=== PATIENT | female | born 1935 | race African-American/Black ===

== ENCOUNTER 2021-07-03 20:18 | Inpatient (IN) | payer OTHER ==
[~2021-07-03] VITALS: Ht 160 cm; Wt 103.6 kg
--- NOTE | ~2021-07-03 | EMS ---
[place] [id number] EMS Patient Care Report Name: ELO GUILLEN Room #: 204-P ADM IN M.R.#: [id number] Admission: 07/04/21 Attend Phys: Adriana Wilcox MD Discharge: Date of : 39 Report #: [id number] THIS REPORT FOR: //name// Report Transmitted: 07/07/2021 14:54 EMS Care Summary [place], [place]/[facility] Incident [id number] @ 07/03/2021 19:24 Incident Location [address] [place] [address] Patient ELO GUILLEN Female, 85 Years 1935 Patient Address [address] [place] [address] Patient History Congestive Heart Failure (CHF),Diabetes, Patient Allergies No known allergies, Patient Medications Lasix, Chief Complaint EDEMA Disposition Transported No Lights/[place] Dispatch Reason Breathing Problem Transported To [facility] Narrative M30 RESPONDED TO A BREATHING PROBLEM. ON SCENE M30 FOUND AN 85 YR OLD FEMALE SITTING UP ON A CHAIR IN A ROOM WATCHNG THE TELE. PT WAS A&OX4, GCS OF 15. NO TRAUMA OR BLEEDING NOTED. PT WAS NOT IN ANY DISTRESS OR [place] [address] EMS Patient Care Report Name: ELO GUILLEN Room #: 204-P [facility] IN [facility]#: [id number] Admission: 07/04/21 Attend Phys: Adriana Wilcox MD Discharge: Date of : 39 Report #: [id number] THAT SHE WAS FEELING SOB EARLIER IN THE THAT, BUT THAT HAD GONE AWAY, AND NOW WAS FEELING SOB AGAIN. SUBSTANTIAL EDEMA IN HER OWER EXTREMITIES WAS NOTED, AND PT ADDED THAT SHE WAS ON A WATER PILL. PT SAID SHE WAS UPSET AND AXIOUS WHEN SHE FELT SOB, BUT WAS MORE CONCERNED ABOUT HER FLUID RETENTION AND NOT GOING TO THE BATHROOM AF OFTEN SHE IS SUED TO. PT'S LUNG SOUNS WERE CLEAR BILATERALY WITH REGULAR NON LABORED RESPIRATIONS. PT'S ROOM AIR SATURATIONS WERE 96%. PT WAS ASSISED TO STRETCHER BROUGHT INTO THE ROOM. PT WAS SECURED WITH SEATBELTS AND MOVED TO THE AMBULANCE. PT'S CONDITION REMAINED STABLE AND UNCHANGED DURING NON-EMERGENCY TRANSPORT TO [facility]. PT CARE WAS TRANSFERRED TO ER STAFF IN ROOM 07. PT WAS MOVED TO BED BY ER STAFF AND EMS CREW. PT WAS LEFT IN BED WITH RAILS UP AND IN THE LOCKED POSITION, AND UNDER RN CARE. Initial Vitals @19:53P: 57,CO: 11,SpO2: 96, @19:42BP: 139/69,CO: 14,SpO2: 97, @19:41P: 60,R: 16,BP: 145/67,Pain: 0/10,GCS: 15,SpO2: 98,Revised Trauma: 12, Assessments @19:30MENTAL:Event Oriented,Person Oriented,Place Oriented,Time Oriented,SKIN:HEENT:Head/Face: No Abnormalities,LUNG SOUNDS:General: No Abnormalities,Left Upper: No Abnormalities,Right Upper: No Abnormalities,Left Lower: No Abnormalities,Right Lower: No Abnormalities,ABDOMEN:General: No Abnormalities,Left Upper: No Abnormalities,Right Upper: No Abnormalities,Left Lower: No Abnormalities,Right Lower: No Abnormalities,PELVIS//GI:No Abnormalities,EXTREMITIES:Right Leg: Edema,Left Leg: Edema,Left Arm: No Abnormalities,Right Arm: No Abnormalities,PULSE:Radial: 2+ Normal,NEURO:No Abnormalities, Impression Edema Procedures @19:30 ALS Assessment Response: UnchangedSucceeded Timeline 19:22,Call Received 19:22,Dispatch Notified 19:24,Dispatched 19:25,En Route 19:28,On Scene 19:30,At Patient 19:30,ALS Assessment,Response: UnchangedSucceeded, 19:41,BP: 145/67 M,PULSE: 60,RR: 16 R,SPO2: 98 Ox,ETCO2: ,BG: ,PAIN: 0,GCS: 15, 19:42,BP: 139/69 M,PULSE: ,RR: R,SPO2: 97 Ox,ETCO2: ,BG: ,PAIN: ,GCS: , 19:53,BP: / M,PULSE: 57,RR: R,SPO2: 96 Ox,ETCO2: ,BG: ,PAIN: ,GCS: , [facility] [address] [place] [address] EMS Patient Care Report Name: ELO GUILLEN Room #: 204-P [facility] IN ..#: [id number] Admission: 07/04/21 Attend Phys: Adriana Wilcox MD Discharge: Date of : 39 Report #: [id number] 20:00,Depart Scene 20:13,At Destination 20:25,Call Closed Disclaimer [email or web address] Copyright 2020 [employer] This EMS Care Summary contains data elements from the applicable legal record (which may be displayed differently). It is designed to provide pertinent information for the following purposes: continuity of care, clinical quality, and state data reporting. The complete legal record is available to ED staff and administrators of the receiving hospital in [email or web address]'s Patient Tracker. All data is provided "as is."
[2021-07-03 20:26] VITALS: BP 137/55
[2021-07-03 22:57] LABS: CALCIUM 8.7 mg/dL (8.5-10.1); CREATININE 2.7 mg/dL (0.6-1.0); POTASSIUM 4.5 mmol/L (3.5-5.1)
[2021-07-03] MEDS ORDERED: NORVASC10 MG PO (23:06)
[2021-07-03] MEDS ORDERED: LEVO-T100 MCG PO (23:06)
[2021-07-03 23:07] LABS: ALBUMIN 3.9 g/dL (3.4-5.0); TOTAL BILIRUBIN 0.5 mg/dL (0.2-1.0); TOTAL PROTEIN 7.9 g/dL (6.4-8.2)
[2021-07-03] MEDS ORDERED: NEURONTIN100 MG PO ×3 (23:07→23:20)
[2021-07-03] MEDS ORDERED: COZAAR100 MG PO (23:07)
[2021-07-03] MEDS ORDERED: ACID REDUCER20 MG PO (23:08)
[2021-07-03] MEDS ORDERED: LATANOPROST 0.2.5 ML (23:09)
[2021-07-03] MEDS ORDERED: ULTRAM50 MG (23:10)
[2021-07-03] MEDS ORDERED: CARBIDOPA-LEVO1 EAC5 PO (23:11)
[2021-07-03] MEDS ORDERED: HYDROCODON-ACE1 EA11 PO (23:19)
[2021-07-03 23:50] LABS: ABSOLUTE NEUTROPHILS 3.5 thou/uL (1.4-8.2); BASOPHILS 0.6 % (0.0-2.0); EOSINOPHILS 3.4 % (0.0-3.0); HEMATOCRIT 36.9 % (37.0-47.0); MCH 30.8 pg (26.0-34.0); MCHC 32.5 g/dL (28.0-37.0); MCV 94.7 fL (80.0-100.0); MONOCYTES 10.9 % (1.0-8.0); PLATELET COUNT 252 thou/uL (150-400); POLYS 60.1 % (36.0-66.0); RBC 3.89 mil/uL (4.20-5.00); RDW 15.5 % (10.5-14.5); WBC 5.9 thou/uL (4.0-11.0)
[2021-07-04 01:23] LABS: URINE BILIRUBIN NEGATIVE (Negative); URINE BLOOD 3+ (Negative); URINE CLARITY CLOUDY; URINE COLOR YELLOW; URINE GLUCOSE-RANDOM* NEGATIVE (Negative); URINE KETONES NEGATIVE (Negative); URINE NITRITE-REFLEX NEGATIVE (Negative); URINE PROTEIN (DIPSTICK) NEGATIVE (Negative); URINE SPECIFIC GRAVITY <= 1.005 (1.005-1.035); URINE UROBILINOGEN 0.2 E.U./dl (0.2-1.0)
[2021-07-04 01:39] LABS: URINE LEUKOCYTES-REFLEX 3+ (Negative)
[2021-07-04 01:48] LABS: BACTERIA-REFLEX >30 Many /HPF (None Seen); CASTS None Seen /LPF (None Seen); CRYSTALS None Seen /LPF (None Seen); MUCUS 0-3 Light strn/LPF (None Seen); SQUAMOUS 4-10 Moderate /LPF (0-3); URINE RBC >20 Many /HPF (NONE SEEN); URINE WBC-REFLEX >25 Many /HPF (0-5); WBC CLUMPS Packed (None Seen)
[2021-07-04 17:26] VITALS: BP 151/56
--- NOTE | 2021-07-04 18:01 | NUR ---
Received pt to room 204 from ER approx. 1645. Pt on RA, SA on the monitor. Pt is A&O x3. Pt c/o of back pain 04/20, c/o noncardiac chest pain under lt breast, no radiation 02/18. Admission assessment as documented. Pt settled into room. Daughter at bedside. Orders received from cardiology.
[2021-07-04 20:15] VITALS: BP 149/64
[2021-07-05 04:27] LABS: HEMATOCRIT 35.1 % (37.0-47.0); HEMOGLOBIN 11.7 gm/dL (12.0-15.0); MCH 31.4 pg (26.0-34.0); MCHC 33.2 g/dL (28.0-37.0); MCV 94.5 fL (80.0-100.0); RBC 3.72 mil/uL (4.20-5.00); RDW 15.4 % (10.5-14.5); WBC 4.9 thou/uL (4.0-11.0)
[2021-07-05 04:39] LABS: CALCIUM 8.8 mg/dL (8.5-10.1); POTASSIUM 3.8 mmol/L (3.5-5.1)
[2021-07-05 04:45] VITALS: BP 146/65
[2021-07-05 07:00] VITALS: BP 142/54
[2021-07-05 11:00] VITALS: BP 140/51
[2021-07-05 15:00] VITALS: BP 139/62
--- NOTE | 2021-07-05 17:35 | NUR ---
PT RESTED IN BED THOUGHOUT SHIFT, CONTINUED PLAN OF CARE. LITTLE SAMS OUTPUT THIS AM, THIS AFTERNOON SAMS OUTPUT INCREASED. NO BM TODAY. FAMILY AT BED SIDE THIS AFTERNOON.
[2021-07-05 19:31] VITALS: BP 143/59
[2021-07-05 23:12] VITALS: BP 143/59
[2021-07-06 04:10] LABS: HEMATOCRIT 31.8 % (37.0-47.0); HEMOGLOBIN 10.6 gm/dL (12.0-15.0); MCH 31.4 pg (26.0-34.0); MCHC 33.2 g/dL (28.0-37.0); MCV 94.6 fL (80.0-100.0); RBC 3.36 mil/uL (4.20-5.00); RDW 15.3 % (10.5-14.5); WBC 4.5 thou/uL (4.0-11.0)
[2021-07-06 04:12] LABS: ALBUMIN 2.9 g/dL (3.4-5.0); CALCIUM 8.6 mg/dL (8.5-10.1); CREATININE 1.8 mg/dL (0.6-1.0); PHOSPHORUS 3.5 mg/dL (2.5-4.9); POTASSIUM 3.6 mmol/L (3.5-5.1)
[2021-07-06 04:33] VITALS: BP 117/51
--- NOTE | 2021-07-06 05:11 | NUR ---
assumed pt care at 1900, alert and oriented, sr on tele, assessments as charted, good urine iutput noted from kenyon catheter, reported feeling constipated, belt worker notified, orders received and implemented, no bm yet, will continue to monitor
[2021-07-06 07:42] VITALS: BP 129/59
[2021-07-06 10:41] VITALS: BP 134/66
[2021-07-06 15:30] VITALS: BP 131/63
--- NOTE | 2021-07-06 16:38 | NUR ---
PATIENT ASSEMENTS CHARTED. PATIENT TRYING TO HAVE BM. PATIENT HAS SOME BACK PAIN. DAUGHTER CAME TO BEDSIDE TODAY.
[2021-07-06 19:58] VITALS: BP 126/52
--- NOTE | 2021-07-07 03:56 | NUR ---
ALERT AND ORIENTER, SLOW TO REPOND, C/O CHRONIC BACK PAIN, PRN HYDROCODONE GIVEN WITH RELIEF,REPOSITIONED PRN, NO BM THIS SHIFT, SAMS INTACT WITH GOOD U/O, ASSESSMENTS CHARTED, MEDS PASSED PER EMAR, NO ACUTE DISTRESS NOTED THIS SHIFT, WILL CONTINUE TO MONITOR
[2021-07-07 04:34] VITALS: BP 130/58
[2021-07-07 05:29] LABS: CALCIUM 8.6 mg/dL (8.5-10.1); CREATININE 1.6 mg/dL (0.6-1.0); PHOSPHORUS 3.3 mg/dL (2.6-4.7); POTASSIUM 3.2 mmol/L (3.5-5.1)
[2021-07-07 07:26] VITALS: BP 139/53
--- NOTE | 2021-07-07 11:15 | 2DMMODE ---
[facility] [place] [address] 2 D/M-MODE ECHOCARDIOGRAM Name: ELO GUILLEN Room #: 204-P ADM IN M.R.#: [id number] Admission: 07/04/21 Attend Phys: Adriana Wilcox MD Discharge: Date of : 37 Report #: [id number] THIS REPORT FOR: cc: [facility] - Clinic physician unknown [facility] - Clinic physician unknown Karlos oSni MD [facility] ~ APPROVED REPORT Study performed: 07/07/2021 10:13:32 EXAM: Comprehensive 2D, Doppler, and color-flow Echocardiogram Patient Location: Bedside Room #: 204 Status: routine BSA: 2.08 HR: 75 bpm BP: 139/53 mmHg Rhythm: NSR Other Information Study Quality: Good Indications Congestive Heart Failure Diabetes Dyspnea Hypertension/HDD 2D Dimensions RVDd: 34.17 mm IVSd: 9.68 (7-11mm) LVOT Diam: 19.95 (18-24mm) LVDd: 43.91 mm PWd: 9.41 (7-11mm) Ascending Ao: 29.87 (22-36mm) LVDs: 28.11 (25-40mm) Left Atrium: 35.21 (27-40mm) Aortic Root: 29.59 mm IVC: 23.00 mm Volumes Left Atrial Volume (Systole) Single Plane 4CH: 55.72 mL Single Plane 2CH: 31.38 mL LA ESV Index: 24.00 mL/m2 Aortic Valve AoV Peak Gustabo.: 1.64 m/s [facility] [address] [place] [address] 2 D/M-MODE ECHOCARDIOGRAM Name: ELO GUILLEN Room #: 204-P [facility] IN [facility].#: [id number] Admission: 07/04/21 Attend Phys: Karyna Paz Discharge: Date of : 39 Report #: [id number] AO Peak Gr.: 10.69 mmHg LVOT Max P.63 mmHg LVOT Max V: 1.29 m/s TANI Vmax: 2.46 cm2 Mitral Valve E/A Ratio: 0.9 MV Decel. Time: 222.87 ms MV E Max Gustabo.: 1.01 m/s MV A Gustabo.: 1.13 m/s MV PHT: 64.63 ms IVRT: 115.34 ms Pulmonary Valve PV Peak Gustabo.: 1.10 m/s PV Peak Gr.: 4.84 mmHg Pulmonary Vein P Vein S: 0.56 m/s P Vein A: 0.40 m/s P Vein D: 0.34 m/s P Vein S/D Ratio: 1.65 Tricuspid Valve TR Peak Gustabo.: 2.81 m/s TR Peak Gr.: 31.65 mmHg PA Pressure: 42.00 mmHg Left Ventricle The left ventricle is normal size. There is normal left ventricular wall thickness. Left ventricular systolic function is hyperdynamic. LVEF is 65-70%. Grade I - abnormal relaxation pattern. Right Ventricle The right ventricle is normal size. The right ventricular systolic function is normal. Atria The left atrium size is normal. The right atrium size is normal. Aortic Valve The aortic valve is normal in structure. No aortic regurgitation is present. There is no aortic valvular stenosis. Mitral Valve The mitral valve is normal in structure. There is no mitral valve regurgitation noted. No evidence of mitral valve stenosis. [facility] [address] [place] [address] 2 D/M-MODE ECHOCARDIOGRAM Name: ELO GUILLEN Room #: 204-P [facility] IN ..#: [id number] Admission: 07/04/21 Attend Phys: Karyna Paz Discharge: Date of : 39 Report #: [id number] Tricuspid Valve The tricuspid valve is normal in structure. There is mild tricuspid regurgitation. Estimated PAP 42 mmHg. There is moderate pulmonary hypertension. Pulmonic Valve The pulmonary valve is normal in structure. There is no pulmonic valvular regurgitation. Great Vessels The aortic root is normal in size. IVC is dilated and collapses <50% with inspiration. Pericardium There is no pericardial effusion. <Conclusion> The left ventricle is normal size. Left ventricular systolic function is hyperdynamic. LVEF is 65-70%. Grade I - abnormal relaxation pattern. The right ventricle is normal size. The left atrium size is normal. The aortic valve is normal in structure. The mitral valve is normal in structure. There is mild tricuspid regurgitation. Estimated PAP 42 mmHg. There is moderate pulmonary hypertension. The aortic root is normal in size. There is no pericardial effusion. <ELECTRONICALLY SIGNED> By: Karlos Soni MD, FACC 07/07/21 1115 14 14 Karlos Soni MD, FACC /INF
--- NOTE | 2021-07-07 14:17 | NUR ---
Nutrition: Seen for elevated BMI 43.5, extreme class III obesity. Pt dx CKD CHF, fluid overload - IV diuresis conpleted, now on PO diuretics. 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 Current intakes on CCHO/Renal diet ~50%. Will initiate Ensure pudding TID vs high volume liquid supplement for additional kcal with moderate protein/cho. Follow weight trends r/t diuresis. Low nutrition risk with intervention intitiated. .
--- NOTE | 2021-07-07 14:29 | NUR ---
AFTER ENTERING REQUEST FOR INPATIENT REHAB CONSULTATION BRIM CURLER CONTACTED [facility]ER REPORTING THE PT WILL REVIEW SNF FOR PLACEMENT AT DISCHARGE.
[2021-07-07 15:27] VITALS: BP 142/72
[2021-07-07 20:15] VITALS: BP 132/52
[2021-07-08 04:44] VITALS: BP 144/53
[2021-07-08 04:55] LABS: ALBUMIN 3.2 g/dL (3.4-5.0); CREATININE 1.5 mg/dL (0.6-1.0); PHOSPHORUS 3.1 mg/dL (2.5-4.9); POTASSIUM 3.8 mmol/L (3.5-5.1)
--- NOTE | 2021-07-08 07:38 | NUR ---
asessments as charted, sr on tele, prn pain meds given with relief with partial relief, had a bowel movement this shift, meds given as per emar, no acute distress, report given to day nurse
[2021-07-08 09:35] VITALS: BP 142/57
--- NOTE | 2021-07-08 14:22 | NUR ---
PATIENT ADMITTED FOR [place] ON CKD; B LE EDEMA; ANASARCA. CHART REVIEWED AND DISCUSSED CASE WITH CARE TEAM. CM MET WITH PT THIS DAY. CM ROLE INTRODUCED. PATIENT REPORTS SHE LIVES AT HOME WITH HER DAUGHTER INGRID IN AN APARTMENT. THERE ARE STAIRS INSIDE THE APARTMENT AND A RAMP OUTSIDE THED APARTMENT. PT USES A WALKER BUT DOES WALK MUCH. PT ALSO HAS A WHEELCHAIR, COMMODE, AND SHOWER CHAIR. SPOKE TO PTS DAUGHTER INGRID OVER THE PHONE WHO REPORTS PT HAS NOT USED THE SHOWER CHAIR PT IS JUST WASHED UP WHILE LYING IN BED. SHE ALSO REPORTS PATIENT JUST WALKS INSIDE THE APARTMENT A FEW STEPS FROM CHAIR TO COMMODE OR BED TO COMMODE WHICH IS ONLY A FEW STEPS. DAUGHTER ASSISTS. PATIENT REPORTS DAUGHTER IS HOME MOST OF THE TIME. PATIENT AND DAUGHTER REPORT PATIENT HAD BEEN TO [facility] FOR REHAB IN THE PAST BUT PT DOES NOT WANT TO GO BACK. SHE REPORTS THE FACILITY IS COLD AND STAFF NOT THAT FRIENDLY. PT OR PTS DAUGHTER DO NOT REMEMBER PCP NAME BUT DO SAY GOES TO [facility]. THIS CM GAVE PT A [facility] SKILLED LIST. ALSO EMAILED A SNF LIST TO INGRID. WILL AWAIT DECISION AND SEND REFERRALS ONCE DECISION IS MADE. CM FOLLOWING.
[2021-07-08 16:25] VITALS: BP 128/55
[2021-07-08 20:00] VITALS: BP 136/55
[2021-07-09 04:00] VITALS: BP 139/53
[2021-07-09 05:54] LABS: ALBUMIN 3.3 g/dL (3.4-5.0); CALCIUM 9.2 mg/dL (8.5-10.1); CREATININE 1.5 mg/dL (0.6-1.0); PHOSPHORUS 3.6 mg/dL (2.5-4.9); POTASSIUM 3.5 mmol/L (3.5-5.1)
[2021-07-09 07:31] VITALS: BP 140/54
--- NOTE | 2021-07-09 08:23 | NUR ---
ASSUMED PT CARE AT 1900, ALERT AND ORIENTED, ASSESSMENTS CHARTED, PAIN MEDS GIVEN FOR BLE AND BACK PAIN WITH PARTIAL RELIEF, VSS, SR ON TELE, MEDS GIVEN PER SEP, NO DISTRESS NOTED THIS SHIFT, PASSED ON REPORT TO DAY NURSE
--- NOTE | 2021-07-09 12:02 | NUR ---
SPOKE TO PTS DAUGHTER INGRID THIS AM. SHE REPORTS PT AND HERSELF HAVE NOT CHOSEN A FACILITY AT THIS TIME. SHE REPORTS SHE WILL LOOK AT THIS OF CHOICES PROVIDED TO HER THIS EVENING AND DISCUSS WITH HER MOTHER. THIS CM INFORMED PT OF PROCESS OF REFERRALS/ACCEPTANCE/INS AUTH AND TIME FRAME THIS PROCESS TAKES. [facility] PROVIDED ON NEED FOR CHOSEN FACILITY TO ENSURE ALL NECESSARY DISCHARGE PLANNING IS IN PLACE ONCE PT IS MEDICALLY STABLE TO DC. PTS DAUGHTER CONTINUE TO INFORM SHE LOOK AT THE LIST THEN EVENING AND LET TEAM KNOW WHEN DECISION IS MADE. CM WILL CONTINUE TO FOLLOW.
[2021-07-09 15:29] VITALS: BP 132/54
--- NOTE | 2021-07-09 15:50 | NUR ---
Patient is A/OX3 ABLE TO MAKE NEEDS KNOWN. C/O OF LEFT SIDE PAIN WITH PARTIAL RELIEF WITH PAIN MEDICATION. SR ON TELE, LCTA WITH DIMINISHED BASES. [facility]. WAITING SNF PLACEMENT. VSS AND AFEBRILE AT THIS TIME
[2021-07-09 19:58] VITALS: BP 145/82
[2021-07-10 03:15] VITALS: BP 141/61
--- NOTE | 2021-07-10 04:00 | NUR ---
RECEIVED PATIENT AT 1900H.ASSESSMENT DONE CHARTED.MEDS GIVEN PER SEP.ALL NEEDS ATTENDED.TO CONTINOUSLY MONITOR.
[2021-07-10 05:06] LABS: ALBUMIN 3.2 g/dL (3.4-5.0); CALCIUM 9.1 mg/dL (8.5-10.1); CREATININE 1.4 mg/dL (0.6-1.0); PHOSPHORUS 3.7 mg/dL (2.5-4.9); POTASSIUM 3.1 mmol/L (3.5-5.1)
[2021-07-10 07:24] VITALS: BP 141/50
[2021-07-10 08:30] VITALS: BP 141/50
[2021-07-10] MEDS ORDERED: DEMADEX20 MG PO (09:12)
[2021-07-10] MEDS ORDERED: COZAAR 25 MG TA25 M2 PO (09:12)
[2021-07-10 15:19] VITALS: BP 134/54
--- NOTE | 2021-07-10 15:46 | NUR ---
THIS CM SPOKE TO PTS DAUGHTER INGRID WHO INFORMED PT AND HERSELF CHOSE [facility]. REFERRAL SENT AND PT ACCEPTED. AUTH APPROVED. TRANSPORTATION ARRANGED FOR PT TO TRANSFER VIA [facility] AT 10AM SAT. PLEASE FAX DC ORDERS AND SUMMARY TO [phone] AND CALL [phone] AND ASK FOR POST ACUTE.
--- NOTE | 2021-07-10 18:21 | NUR ---
PATIENT PROGRESSIVELY BECOMING CONTINENT OF URINE AND BOWEL. PATIENT HAD MODERATE BOWEL MOVEMENT IN MORNING. PATIENT EATING MORE THROUGH EVENING FOR DINNER. PATIENT EXPERIENCED INTERMITTENT PAIN IN MUSCLES THROUGH SPASMS. THIS NURSE ADMINISTERED MEDICATION FOR HELPING WITH THIS PAIN. PATIENT EXPERIENCING CONCERN ABOUT NEXT PLAN OF CARE. DAUGHTER NEAR BEDSIDE THIS AFTERNOON. PATIENT DESIRES MASSAGE OF LOWER EXTREMITIES TO RELIEVE PAIN.
[2021-07-10 19:33] VITALS: BP 140/61
[2021-07-11 03:10] VITALS: BP 140/72
--- NOTE | 2021-07-11 03:54 | NUR ---
RECEIVED PATIENT AT 1900H.ASSESSMENT DONE CHARTED.WITH SAMS CATHTER INSITU.MEDS GIVEN PER SEP.ALL NEEDS ATTENDED.TO CONTINOUSLY MONITOR.
[2021-07-11 07:36] VITALS: BP 128/52
[2021-07-11 08:30] VITALS: BP 128/52
[2021-07-11 08:31] VITALS: BP 128/52
--- NOTE | 2021-07-14 11:17 | NUR ---
THIS CM FAXED DA346 TO [facility] WITH [facility].
== END 2021-07-11 11:41 | DRG 682 ==
LOC: ER 20:18 → 2N 07-04 01:03 → EROBS 07-04 01:03 → 2N 07-04 17:16
PROVIDERS: Emergency Medicine; Hospitalist; Nurse Practitioner Family; Physician Assistant; ADMIT Hospitalist; ATTEND Hospitalist
DX: N17.0 Acute kidney failure with tubular necrosis (principal); I50.31 Acute diastolic (congestive) heart failure; E87.1 Hypo-osmolality and hyponatremia; I13.0 Hypertensive heart and chronic kidney disease with heart failure and stage 1 through stage 4 chronic kidney disease, or unspecified chronic kidney disease; R34 Anuria and oliguria; E78.00 Pure hypercholesterolemia, unspecified; K21.9 Gastro-esophageal reflux disease without esophagitis; M19.90 Unspecified osteoarthritis, unspecified site; E11.42 Type 2 diabetes mellitus with diabetic polyneuropathy; N18.9 Chronic kidney disease, unspecified; E03.9 Hypothyroidism, unspecified; E11.319 Type 2 diabetes mellitus with unspecified diabetic retinopathy without macular edema; E11.22 Type 2 diabetes mellitus with diabetic chronic kidney disease; E87.6 Hypokalemia; Z90.710 Acquired absence of both cervix and uterus; Z79.899 Other long term (current) drug therapy
CPT/HCPCS: 10081